=== PATIENT | male | born 1955 | race Caucasian/White ===

== ENCOUNTER 2022-12-10 06:42 | Day surgery (SDC) | payer MEDICARE, SELFPAY ==
[2022-12-10] VITALS (16 sets, daily range): BP systolic 114–145; BP diastolic 74–93; PULSE 62–70; RESP 13–18; TEMP 35.9–36.7; O2SAT 89–98; BMI 32.0
[2022-12-10] MEDS: LACTATED RINGERS 1000 ML 1,000 ML 100 ML IV (07:15)
[2022-12-10] MEDS: SODIUM CHLORIDE 0.9 % (FLUSH) 10 ML SYRINGE IVF (07:15)
[2022-12-10] MEDS: fentaNYL 100 MCG/2 ML inj IVP (07:55)
[2022-12-10] MEDS: MIDAZOLAM HCL 1 MG/ML inj IVP (07:55)
--- NOTE | 2022-12-10 08:01 | SUR.PREOP ---
TIME?OUT:?0755 PT/RN/MDA?VERIFICATION?OF?SURGICAL?SITE,?PROCEDURE,?AND?CONSENT OBTAINED?PRIOR?TO?INVASIVE?PROCEDURE.
[2022-12-10] MEDS: CEFAZOLIN 2 GM in 0.9 % SODIUM CHLORIDE Mini-bag 100 ML IVPB (08:15)
--- NOTE | 2022-12-10 09:09 | W.ANESCHARGE ---
Anesthesia Charges Start Date/Time Anesthesia Start Date: 12/10/22 Anesthesia Start Time: 08:07 Stop Date/Time Anesthesia Stop Date: 12/10/22 Anesthesia Stop Time: 10:19
[2022-12-10] MEDS: EPINEPHrine 1 MG in SODIUM CHLORIDE IRRIG SOLUTION 3,000 ML 9003 MG IRRIGATION ×4 (09:17→10:07)
--- NOTE | 2022-12-10 09:26 | W.PM.NB ---
Nerve Block Nerve Block Time Seen by Provider: 08:00 Date Seen: 12/10/22 Type of block requested by surgeon for post-operative analgesia: supraclavicular Side: left Time out performed: Yes Verification of patient name: Yes Verification of date of : Yes Site marking: site marked Name of person performing procedure: Roc Continuous monitoring Was continuous monitoring of O2 sat, B/P, cardiac monitor technician, recorded every 15 minutes?: Yes Procedure Checklist: sterile prep, needles and gloves Ultrasound guided. Images saved: Yes Medications given in 5ml increments after negative aspiration: Ropivicaine %: 0.5 mL: 20 Needle gauge: 22 Decadron (mg): 10 Precedex (mcg): 25 Patient tolerated procedure well: Yes Block Charges Block Charge (with Pro Fee): Brachial Plexus Use of Ultrasound Machine for Block: Yes- US Guidance/pain block
--- NOTE | 2022-12-10 09:27 | W.ANESCHARGE ---
Anesthesia Charges Start Date/Time Anesthesia Start Date: 12/10/22 Anesthesia Start Time: 08:07 Stop Date/Time Anesthesia Stop Date: 12/10/22 Anesthesia Stop Time: 10:19
--- NOTE | 2022-12-10 10:05 | PM.ORPRC ---
Procedure Note Date of procedure: 12/10/22 Procedure: PREOPERATIVE DIAGNOSES: 1. Left shoulder rotator cuff tear-full thickness supraspinatus 2. Left shoulder AC degenerative joint disease, primary, moderate-severe 3. Left shoulder subacromial impingement syndrome. POSTOPERATIVE DIAGNOSES: 1. Left shoulder rotator cuff tear - full-thickness supraspinatus 2. Left shoulder AC degenerative joint disease, primary, moderate-severe 3. Left shoulder long head of biceps partial-thickness tearing, deep surface 4. Left shoulder anterior labral degenerative tearing 5. Left shoulder subacromial impingement syndrome. NAME OF OPERATION: 1. Left shoulder arthroscopic rotator cuff repair. 2. Left shoulder arthroscopic distal clavicle excision 3. Left shoulder arthroscopic limited glenohumeral debridement 4. Left shoulder arthroscopic bursectomy, subacromial decompression/partial acromioplasty. SURGEON: Srinath Easley MD WEB MARKETING ANALYST: Murali COOMBS. Of note, a skilled activities assistant was critical for this case to aide in patient positioning, suture manipulation, arm positioning, instrument positioning, and closure. ANESTHESIA: General plus preoperative supraclavicular block. EBL: 25 mL IMPLANTS: Arthrex 2.6 mm knotless FiberTak RC (x2); 5.5 mm BioComposite SwiveLock suture anchor (x2) COMPLICATIONS: None evident INDICATIONS: The patient is a pleasant, 67-year-old male who has experienced left shoulder pain that has been increasing in recent time. Physical exam and imaging were consistent with a rotator cuff tear. Given their findings, as well as the weakness and pain, and inadequate response to nonoperative management, recommendation was made for surgery. FINDINGS: Exam under anesthesia revealed stable shoulder with excellent range of motion. The diagnostic arthroscopy revealed small region grade 4 chondromalacia superior central humeral head near the supraspinatus insertion. Otherwise healthy articular cartilage. The Subscapularis tendon was healthy with a strong attachment and intact. The long head of the biceps tendon was torn in a partial-thickness low-grade manner on the deep surface near the bicipital groove. The superior rotator cuff tendon was found to be torn full-thickness through most of the supraspinatus. There was a bony portion still connected through supraspinatus on the distal 6 mm that was approximately 15 mm A-P.. The labrum was degeneratively frayed and torn anteriorly. No loose bodies were identified within the pouch or subscapularis recess. PROCEDURE: Following a thorough discussion of risks, benefits, and alternatives, consent was obtained and the left shoulder was marked. The patient was brought to the operating room and placed supine on the operating table. Induction of anesthesia was completed after preoperative supraclavicular block was administered in preop holding. Appropriate time out was performed identifying proper patient, site, and procedure. 2 g IV Ancef was administered within 1 hour of incision preoperatively. The left upper extremity was prepped and draped in the appropriate sterile fashion using ChloraPrep prep. This was after the patient was positioned in the beach chair with their head in neutral alignment and all bony prominences well padded. The shoulder was insufflated with 20mL of normal saline via an 18g spinal needle from a posterior approach. An 11 blade skin incision allowed a blunt trochar to be inserted and diagnostic arthroscopy to be performed with the findings as noted above. An anterior portal was established with an outside in technique. This allowed the probe to be inserted and confirm the diagnostic arthroscopic findings. The shaver was then inserted and allowed debridement of the anterior labrum as well as the deep portion of the long head of biceps where the partial-thickness tearing occurred. Following this, the upper border subscapularis was probed and found to be stable. Thereafter, the subacromial space was entered. Here, a complete bursectomy and partial acromioplasty/subacromial decompression was performed with a combination of radiofrequency ablator, the shaver, and a 5.5 mm bur. Additionally, distal clavicle excision was performed with the bur. 8 mm of distal clavicle was resected based on the width of our bur. Further inspection of the supraspinatus and infraspinatus rotator cuff was performed. This identified the tear as noted above. The margins of the tear were debrided, and the greater tuberosity was debrided with a combination of the apollo cautery, shaver, and bur on reverse setting. After gentle decortication, a speed bridge configuration with a medial miriam was engaged. 2 medial anchors were placed and the sutures were passed with a fiber link. The knotless sutures were passed/swapped and a medial miriam engauged accordingly. A tail from each of the medial row anchor FiberTapes were then brought to a lateral row anchor. Excellent reapproximation of the tissue to the greater tuberosity was achieved with broad footprint compression. Prior to anchor xm1 tank driver removal, the eyelet sutures were tugged on for each anchor and found that the anchor had excellent stability within the bone. The shoulder was placed through range of motion and found to be stable. The rotator cuff was re-probed and found to be stable. Instruments were removed. Excess fluid was drained, closure performed with 4-0 Monocryl and Steri-Strips. Dressings were applied. Sling was applied. The patient was awoken from anesthesia and transferred to the PACU in stable condition. A skilled activities assistant was critical for this case to aid in patient positioning, limb positioning, skill to manipulate arthroscopic instruments and camera, suture management, patient safety, and closure. PLAN: 1. Elbow, forearm, wrist and digit range of motion of operative extremity as tolerated. 2. Encouraged ice. 3. Percocet for pain as needed. 4. Sling at all times except for ROM and showering. 5. Follow up with PA visit in 1-2 weeks for wound check. Initiate physical therapy following that visit for passive range of motion promptly. Initiate active assisted range of motion at 4-6 weeks. May do pendulums now.
== END 2022-12-10 12:30 | disposition home or self-care (01) ==
PROVIDERS: PCP Family Medicine; Visit Provider Orthopaedic Surgery Sports Medicine
PROC: (CPT 29805; principal; 2022-12-10 08:15)
DX: M75.102 Unspecified rotator cuff tear or rupture of left shoulder, not specified as traumatic (principal); M19.012 Primary osteoarthritis, left shoulder; M75.42 Impingement syndrome of left shoulder; S43.432A Superior glenoid labrum lesion of left shoulder, initial encounter; S46.112A Strain of muscle, fascia and tendon of long head of biceps, left arm, initial encounter; G89.18 Other acute postprocedural pain
CPT/HCPCS: 29827; 29826; 29822; 29824; 1630; 64415; 76942; C1713; J0171; J0330; J0690; J1100; J1170; J2250; J2371; J2405; J2704; J2795; J3010; J7120; L3670